=== PATIENT | male | born 1960 | race Caucasian/White ===

== ENCOUNTER 2017-12-12 09:56 | Emergency (ER) | payer OTHER, SELFPAY ==
[2017-12-12 10:00] VITALS: BP 145/75; PULSE 96; RESP 16; TEMP 38.6; O2SAT 95
--- NOTE | 2017-12-12 10:24 | ED.GENADUL ---
Disposition Clinical Impression: Tick-borne fever Disposition: HOME Condition: Stable Instructions: Lyme Disease (ED), Tick Bite (ED) Additional Instructions: Return immediately for any severe headache, high fevers, neck stiffness, nausea vomiting or neurological changes. Otherwise take your antibiotics as prescribed and take them for the full 3 weeks. You may continue to use Tylenol as needed for discomfort. Stay well-hydrated and get plenty of rest. Prescriptions: Doxycycline Hyclate 100 mg PO Q12H #41 tablet Referrals: Primary Care Provider [Outside] - 1 week (Care management will assist in arranging a primary care provider for follow-up in 1 week.) Forms: Work Release Medical Decision Making - Lab Data Results reviewed for labs ordered during visit: Yes - Radiology Data Radiology results: report reviewed, image reviewed - Medical Decision Making Patient presenting to the emergency department for chief complaint of flulike illness with headache, body aches, joint pain. Patient works in the [employer] and has multiple exposures to ticks but denies any knowledge of one being attached for extended periods of time or rash. Patient has had symptoms for 5 days and used [id number] therapies which have proven mildly effective but has continued to worsen in his symptoms. There is high concern for tickborne illness inpatient and physical exam is unremarkable. Patient has no obvious signs of meningitis beyond stating headache but no nuchal rigidity, no neurological change, no neurological deficits. Patient has no obvious rash, joint swelling, cardiac or respiratory findings. Plan to do CBC, CMP, tickborne panel, and lactate along with giving patient IV hydration and ketorolac. LP is considered at this time but patient does not appear systemically ill and low suspicion of meningitis at this time but it is considered. We will continue to monitor patient condition and reassess need for possible LP. After review of labs that are unremarkable and show no leukocytosis, no elevated lactate, and otherwise are nondiagnostic patient was reassessed. Patient states he is continued to have discomfort after receiving ketorolac and 1 L of fluids. Patient was ordered second liter of fluids and acetaminophen. Recommend to patient lumbar puncture and risks versus benefit and that there is concern for possible meningitis. With thorough discussion patient states that he would not like this performed at this time and patient is alert and oriented ?4 and competent to make this decision. We will continue to reassess patient. Did decide to perform CT head for evaluation of any encephalopathy or other intracranial abnormalities and patient was agreeable to this. Did inform patient that if his symptoms do not improve that without doing LP at this time he may worsen in his condition and may need LP at later point for more definitive diagnosis which he is agreeable to. Review of head CT and radiologist interpretation showing some sinus disease but no intracranial findings patient was reassessed. Patient now states headache of only 1 out of 10 and that he feels a lot better. Patient was again re-offered lumbar puncture to rule out any sort of meningitis but at this time due to feeling better he states he would prefer to attempt tickborne illness treatment and to return for any new or worsening symptoms. Family was in the room during this discussion and both of them stated understanding of risks versus benefits of lumbar puncture but again declined this testing at this time. Patient placed upon doxycycline for 21 days. Blood cultures were obtained to rule out any sort of bacteremia with unknown source. After discussion of diagnosis and plan of care with patient patient agreed and stated no further needs, questions, or concerns at this time. History of Present Illness - General Chief complaint: Fever Stated complaint: BODY ACHE,DIZZY,HEADACHE Time Seen by Provider: 12/12/17 10:02 Source: patient, RN notes reviewed Mode of arrival: ambulatory Limitations: no limitations - History of Present Illness Initial comments: Patient states 5 days ago he began having flulike symptoms. He started having headache, body aches, joint pain, fever and chills. He states he has been taking NyQuil and aspirin to help relieve the symptoms but today felt significantly worse and run down. He states a couple days ago he also did have an upset stomach but had no nausea vomiting or diarrhea with this. He reports that he works in the [employer] and pulls off multiple ticks on her normal basis and denies any rash but is concern for tickborne illness. Patient denies any chest pain, difficulty breathing, cough, nasal congestion, sore throat. Onset/Timin -: days(s) Location: head Severity scale (1-10): 3 Quality: aching Consistency: constant Improves with: none Worsens with: none Treatments Prior to Arrival: NSAID - Related Data Doxycycline Hyclate 100 mg PO Q12H #41 tablet 12/12/17 Allergies Allergy/AdvReac Type Severity Reaction Status Date / Time No Known Allergies Allergy Unverified 12/12/17 10:04 Review of Systems Constitutional: see HPI, chills, fever, malaise. denies: diaphoresis Eyes: denies: vision change ENT: denies: ear pain, throat pain, congestion Respiratory: denies: cough, shortness of breath, stridor, wheezing Cardiovascular: denies: chest pain, palpitations, syncope Gastrointestinal: as per HPI, abdominal pain. denies: nausea, vomiting, diarrhea, constipation Genitourinary: denies: dysuria Musculoskeletal: as per HPI, arthralgia, myalgia. denies: joint swelling Skin: denies: rash, lesions, change in color Neurological: headache. denies: weakness, numbness, paresthesias, confusion Comment: All other systems reviewed and negative Past Medical History - Past Medical History Medical history: no medical history Surgical history: no surgical history - Social History Smoking status: never smoker Alcohol use: none Drug use: none General Exam - General Limitations: no limitations General appearance: alert, in no apparent distress - Head Head exam: Present: atraumatic, normocephalic, normal inspection - Eye Eye exam: Present: normal apperance, PERRL, EOMI. Absent: scleral icterus, conjunctival injection, nystagmus, periorbital swelling Pupils: Present: normal accommodation - ENT ENT exam: Present: normal exam, normal orophraynx, mucous membranes moist, TM's normal bilaterally, normal external ear exam - Neck Neck exam: Present: normal inspection, full ROM. Absent: tenderness, meningismus, lymphadenopathy - Respiratory Respiratory exam: Present: normal lung sounds bilaterally. Absent: respiratory distress, wheezes, rales, rhonchi, stridor - Cardiovascular Cardiovascular Exam: Present: regular rate, normal rhythm, normal heart sounds. Absent: tachycardia, systolic murmur, diastolic murmur, rubs, clicks - Extremities Exam Extremities exam: Present: normal inspection, full ROM. Absent: tenderness, pedal edema, joint swelling - Back Exam Back exam: Absent: CVA tenderness (R), CVA tenderness (L), rash noted - Neurological Exam Neurological exam: Present: alert, oriented X3, CN II-XII intact, normal gait. Absent: altered, motor sensory deficit - Skin Skin exam: Present: warm, dry, intact, normal color. Absent: rash, cyanosis, diaphoretic, petechiae, pallor, mottled Course Vital Signs - 24 hr 08//18 10:00 Temperature 38.6 C H Pulse 96 H Respiratory 16 Rate Blood Pressure 145/75 Pulse Oximetry 95
[2017-12-12] MEDS: Normal Saline Flush 10 ML SYR IVP (10:40)
[2017-12-12] MEDS: Normal Saline 1,000 ML 1000 ML IV ×2 (10:45→12:09)
[2017-12-12 10:47] LABS: Lactate-non-spesis 0.9 mmol/L (0.6-1.4)
[2017-12-12 10:50] LABS: Abs Immature Grans 0.03 k/cumm (0.0-0.09); Absolute Basophil Count 0.01 k/cumm (0.0-0.2); Absolute Eosinophil Count 0.01 k/cumm (0.0-0.7); Absolute Lymphocyte Count 0.81 k/cumm (1.2-3.4); Absolute Monocyte Count 0.84 k/cumm (0.11-0.7); Absolute Neutrophil Count 7.58 k/cumm (1.2-6.7); Basophils % 0.1; Eosinophils % 0.1; HCT 46.2 % (40.0-50.0); HGB 15.7 g/dL (13.5-17.5); Immature Grans % 0.3; Lymphocytes % 8.7; Mean Corpuscular Hemoglobin 29.6 pg (27.0-33.0); Mean Platelet Volume 10.1 fL (8.0-11.0); Monocytes % 9.1; Neutrophils % 81.7; Platelet Count 131 x1000/uL (130-400); RBC 5.31 m/cumm (4.50-6.00); White Blood Cell Count 9.28 k/cumm (4.4-10.8)
[2017-12-12] MEDS: Ketorolac 30 MG/ML VIAL IVP (10:56)
[2017-12-12 11:05] LABS: ALT 35 U/L (12-78); AST 14 U/L (15-37); Albumin 2.9 g/dL (3.4-5.0); Alkaline Phosphatase 69 U/L (46-116); Anion Gap 7.4 mmol/L (3-11); BUN 9 mg/dL (7-18); Bilirubin, Total 0.7 mg/dL (0.2-1.0); CO2 26.6 mmol/L (21.0-32.0); CREATININE 0.91 mg/dL (0.70-1.30); Calcium 8.4 mg/dL (8.5-10.1); Chloride 99 mmol/L (98-107); Glucose 132 mg/dL (70-100); Potassium 3.8 mmol/L (3.5-5.1); Sodium 133 mmol/L (136-145); Total Protein 8.1 g/dL (6.4-8.2)
[2017-12-12 11:26] VITALS: BP 136/76; PULSE 82; RESP 18; TEMP 38.5; O2SAT 95
[2017-12-12 11:35] VITALS: BP 136/76; PULSE 82; RESP 18; TEMP 38.5; O2SAT 95
[2017-12-12 11:36] LABS: Bilirubin Small (Negative); Blood Trace-intact (Negative); Clarity Sl Cloudy; Glucose Negative (Negative); Ketones Negative (Negative); Leukocyte Esterase Negative (Negative); Nitrite Negative (Negative); Urobilinogen >=8.0 EU/dL (Up TO 0.2)
[2017-12-12 11:43] LABS: Bacteria Rare HPF (Negative); C & S Indicated? No; Casts Negative LPF (Negative); Crystals Negative HPF (Negative); Epithelial Cells Rare HPF (Negative); Mucus Moderate (Negative)
[2017-12-12] MEDS: ACETAMINOPHEN 1,000 MG/100 ML BTL 400 MG IVPB (12:09)
[2017-12-12 13:09] VITALS: BP 127/76; PULSE 77; RESP 16; TEMP 36.5; O2SAT 97
--- NOTE | 2017-12-12 13:11 | DI.RPTCT_ITS ---
SYMPTOMS/DIAGNOSIS: HEADACHE CT BRAIN: Noncontrast. No priors. The ventricles and sulci are within normal limits for the patient's age. No acute intracranial hemorrhage, infarct, midline shift or mass effect is identified. The ventricles are intact. The basilar cisterns are patent. There is opacification of the right maxillary sinus and mucosal thickening seen in the left maxillary sinus and the ethmoid air cells bilaterally. The remaining visualized paranasal sinuses are clear. No fluid levels are seen. The mastoid air cells are well pneumatized. The calvarium is intact. IMPRESSION: 1. Findings of sinusitis. 2. No acute intracranial process. The findings were discussed with Zack Bernardo of the emergency department on the date of the examination.
[2017-12-12] MEDS: Doxycycline Hyclate 100 MG CAP PO (14:46)
[2017-12-12 14:58] VITALS: BP 101/68; PULSE 68; RESP 16; TEMP 37; O2SAT 96
--- NOTE | 2017-12-15 09:44 | PDOC.ERCMPRO ---
Care Management Progress Note 12/15-Zack RADIO TIME SALES SUPERVISOR requested assistance with a PCP (Francis business transformation analyst) f/u in 5 days for concern for tick borne illness with fever. Siobhan Blanco business transformation analyst. Referral faxed to [facility].
--- NOTE | 2017-12-15 09:47 | CMPROGNOTE_ITS ---
Care Management Progress Note 12/15-Zack INDIGO MIXER requested assistance with a PCP (Francis airborne mission systems superintendent) f/u in 5 days for concern for tick borne illness with fever. Siobhan Blanco airborne mission systems superintendent. Referral faxed to [facility].
[2017-12-15 13:19] LABS: Lyme Ab w Rflx to Lyme Confirm Negative
[2017-12-15 14:21] LABS: Anaplasma phagocytophilum Negative (Negative); B. miyamotoi PCR Negative (Negative); Babesia divergens/MO-1 Negative (Negative); Babesia duncani Negative (Negative); Babesia microti Negative (Negative); Ehrlichia chaffeensis Negative (Negative); Ehrlichia ewingii/canis Negative (Negative); Ehrlichia muris eauclairensis Negative (Negative)
== END 2017-12-12 14:50 | disposition home or self-care (01) ==
PROVIDERS: Nurse Practitioner Family; Emergency Provider Student in an Organized Health Care Education/Training Program
DX: A93.8 Other specified arthropod-borne viral fevers (principal); R51 Headache; M79.1 Myalgia; M25.50 Pain in unspecified joint
CPT/HCPCS: 36415; 80053; 87040; 96361; 96365; 96375; 99285; 70450; 81003; 81015; 83605; 83735; 85025; 86618; 87798; J0131; J1885

== ENCOUNTER 2018-11-14 01:52 | Outpatient (CLI) | payer OTHER, SELFPAY ==
[2018-11-14 10:27] LABS: Anion Gap 9.3 mmol/L (3-11); BUN 18 mg/dL (7-18); CO2 24.7 mmol/L (21.0-32.0); CREATININE 0.82 mg/dL (0.70-1.30); Calcium 8.5 mg/dL (8.5-10.1); Calculated LDL 69 mg/dL; Chloride 107 mmol/L (98-107); Cholesterol 127 mg/dL (50-200); Glucose 109 mg/dL (70-100); HDL Cholesterol 31 mg/dL (40-60); Potassium 4.2 mmol/L (3.5-5.1); Sodium 141 mmol/L (136-145); Triglyceride 139 mg/dL (30-150)
== END 2018-11-14 02:12 ==
PROVIDERS: PCP Family Medicine; Visit Provider Family Medicine
DX: Z13.1 Encounter for screening for diabetes mellitus (principal); Z13.220 Encounter for screening for lipoid disorders
CPT/HCPCS: 36415; 80048; 80061; 83721

== ENCOUNTER 2023-10-08 14:57 | Outpatient (CLI) | payer SELFPAY ==
[2023-10-08 09:33] LABS: ALT 65 U/L (16-63); AST 25 U/L (15-37); Albumin 3.6 g/dL (3.4-5.0); Alkaline Phosphatase 69 U/L (46-116); Anion Gap 5.9 mmol/L (3-11); BUN 24 mg/dL (7-18); Bilirubin, Total 0.7 mg/dL (0.2-1.0); CO2 25.1 mmol/L (21.0-32.0); CREATININE 0.8 mg/dL (0.70-1.30); Calcium 8.4 mg/dL (8.5-10.1); Calculated LDL 83 mg/dL (<100); Chloride 106 mmol/L (98-107); Cholesterol 148 mg/dL (<200); Estimated GFR 98.83 (mL/min/1.73m2); Glucose 120 mg/dL (74-106); HDL Cholesterol 47 mg/dL (40-60); Potassium 4.1 mmol/L (3.5-5.1); Sodium 137 mmol/L (136-145); Total Protein 7.2 g/dL (6.4-8.2); Triglyceride 90 mg/dL (<150)
== END 2023-10-08 14:58 | disposition home or self-care (01) ==
LOC: LBO 14:57
PROVIDERS: PCP Family Medicine; Visit Provider Family Medicine
DX: R73.03 Prediabetes (principal)
CPT/HCPCS: 36415; 80053; 80061